=== PATIENT | female | born 1940 | race American Indian/Alaskan Native ===

== ENCOUNTER 2017-10-07 10:15 | Outpatient (CLI) | payer MEDICARE, OTHER ==
--- NOTE | 2017-10-07 16:45 | Cat Scan Report ---
FINAL REPORT EXAM: CT ABDOMEN PELVIS W CON HISTORY: CYST OF KIDNEY TECHNIQUE: Standard enhanced CT of the abdomen and pelvis. Coronal and sagittal reconstruction was also performed. Delayed imaging through the abdomen and pelvis was obtained. Contrast: Oral and intravenous contrast given PRIORS: None. FINDINGS: The kidneys demonstrate numerous cysts bilaterally. On delayed images, most of these are peripelvic cysts bilaterally filling both renal pelvises and stretching the calices. The cortical cysts measure up to 2.7 x 2.5 cm in the lateral mid to upper pole left kidney (axial image 38, series 2). There is a 2nd cyst in the lower pole left kidney measuring 1.4 cm (axial image 44, series 2). Of these cysts are homogeneous, thin-walled, and low in density and show no internal enhancement on delayed images. CT findings suggest benign etiologies bilaterally. Within the abdomen, the liver, spleen, pancreas, and adrenal glands are unremarkable. Gallbladder has been surgically removed. No evidence for retroperitoneal or pelvic lymphadenopathy is seen. The bowel loops have normal caliber. No soft tissue mass, fluid collection, inflammatory change, or free air is seen within the abdomen or pelvis. The appendix is normal. Within the pelvis, the bladder is unremarkable. The uterus has been surgically removed. No evidence for mass or lymphadenopathy is seen in the pelvis. Scattered diverticuli are present in the descending and sigmoid colon. The cecum dips deep into the right pelvis. Images through the upper abdomen include the lung bases which are expanded and clear. Bony structures show a mild, grade 1, anterolisthesis of L4 on L5. Severe disc space narrowing at L5-S1 is noted. In the left breast, there is a 1.5 cm soft tissue nodule in the inferior retroareolar region (axial image 9, series 4). Correlation with mammography is recommended. IMPRESSION: 1. no acute intra-abdominal process noted. 2. Multiple bilateral renal cysts, most of which are peripelvic in location. None of these show any internal enhancement or irregularity. CT characteristics suggest benign entities bilaterally. 3. Diverticulosis of the descending and sigmoid colon 4. Incidental nodular density in the left breast inferior retroareolar region which should be correlated with mammography.
== END 2017-10-07 10:16 | disposition home or self-care (01) ==
LOC: CT 10:15
DX: N28.1 Cyst of kidney, acquired (principal); K57.30 Diverticulosis of large intestine without perforation or abscess without bleeding
CPT/HCPCS: 36415; 74177; 82565; 84520; Q9967

== ENCOUNTER 2021-11-09 16:04 | Outpatient (CLI) | payer MEDICARE ==
[2021-11-09 17:46] LABS: Calcium 8.9 mg/dL (8.4-10.2)
[2021-11-09 18:43] LABS: Creatinine,Urine 540.7 mg/dL (0.1-20.0); Protein/Creatinine Ratio,Urine 0.22
== END 2021-11-09 16:05 | disposition home or self-care (01) ==
LOC: LAB 16:04
PROVIDERS: ATTEND Student in an Organized Health Care Education/Training Program
DX: I12.9 Hypertensive chronic kidney disease with stage 1 through stage 4 chronic kidney disease, or unspecified chronic kidney disease (principal); N18.30 Chronic kidney disease, stage 3 unspecified; E78.5 Hyperlipidemia, unspecified; N28.1 Cyst of kidney, acquired; E55.9 Vitamin D deficiency, unspecified; R80.9 Proteinuria, unspecified; D64.9 Anemia, unspecified
CPT/HCPCS: 36415; 80048; 82570; 83970; 84156